=== PATIENT | male | born 1965 | race Caucasian/White ===

== ENCOUNTER 2020-01-05 20:21 | Inpatient (IN) | payer MEDICAID ==
[~2020-01-05] VITALS: Ht 167.6 cm; Wt 71.7 kg
[2020-01-05] MEDS ORDERED: IPRATROPIUM/ALBUTEROL 0.5-3(2.5)MG/3ML NEB NEB PRN (21:45)
[2020-01-05] MEDS ORDERED: CLONIDINE 0.1MG TABLET PO PRN (21:45)
[2020-01-05] MEDS ORDERED: GUAIFENESIN 200MG/10ML SUGAR FREE UDC PO PRN (21:45)
[2020-01-05] MEDS ORDERED: LORAZEPAM 0.5MG TABLET PO PRN (21:45)
[2020-01-05] MEDS ORDERED: DOCUSATE SODIUM 100MG CAPSULE PO PRN (21:45)
[2020-01-05] MEDS ORDERED: ONDANSETRON HCL 4MG/2ML INJ IV PRN (21:45)
[2020-01-05] MEDS ORDERED: ZOLPIDEM TARTRATE 5MG TABLET PO PRN (21:45)
[2020-01-05] MEDS ORDERED: KETOROLAC 30MG/ML VIAL IV PRN (21:45)
[2020-01-05] MEDS ORDERED: MAGNESIUM/ALUMINUM HYDROXIDE/SIMETHICONE 30ML UDC PO PRN (21:45)
[2020-01-05] MEDS ORDERED: ACETAMINOPHEN 325MG TABLET PO PRN ×2 (21:45)
[2020-01-05 21:54] VITALS: BP 150/70
[2020-01-06] VITALS (12 sets, daily range): BP systolic 96–128; BP diastolic 49–78
[2020-01-06] MEDS ORDERED: MAGNESIUM HYDROXIDE 400MG/5ML 30ML UDC PO PRN (03:15)
[2020-01-06] MEDS ORDERED: MAGNESIUM/ALUMINUM HYDROXIDE/SIMETHICONE 30ML UDC PO PRN (03:15)
[2020-01-06] MEDS ORDERED: ONDANSETRON HCL 4MG/2ML INJ IV PRN (03:15)
[2020-01-06] MEDS ORDERED: ZOLPIDEM TARTRATE 5MG TABLET PO PRN (03:15)
[2020-01-06] MEDS ORDERED: HYDROCODONE/ACETAMINOPHEN 5/325MG TABLET PO PRN (03:15)
[2020-01-06 06:51] LABS: INR 1.1
[2020-01-06] MEDS: SODIUM CHLORIDE 0.9% 1,000 ML IV SCH ×2 (06:59→15:18)
[2020-01-06 07:00] LABS: BASOPHILS % 0.7 % (0.0-2.0); EOSINOPHILS % 1.4 % (0.0-5.0); HEMATOCRIT. 24.8 % (42.0-52.0); HEMOGLOBIN. 8.4 g/dL (14.0-18.0); LYMPHOCYTES % 11.8 % (20.0-50.0); MEAN CORPUSCULAR VOLUME 82.8 fL (80.0-94.0); MEAN PLATELET VOLUME 7.9 fl (7.4-10.4); MONOCYTES % 5.1 % (2.0-8.0); PLATELET 484 x1000/uL (130-400); RED CELL DISTRIBUTION WIDTH 16.5 % (11.6-14.6)
[2020-01-06] MEDS ORDERED: VANCOMYCIN 1 G PREMIX 200 ML IV SCH (07:00)
[2020-01-06 07:04] LABS: CHLORIDE 105 mEq/L (98-107)
[2020-01-06 07:26] LABS: HDL CHOLESTEROL 32 mg/dL (40-59); LDL CHOLESTEROL 94 mg/dL (5-100)
[2020-01-06 07:27] LABS: PHOSPHORUS 3.5 mg/dL (2.5-4.9)
[2020-01-06] MEDS: ASPIRIN 81MG TABLET PO SCH (08:33)
[2020-01-06] MEDS: CEFTRIAXONE 2 G in DEXTROSE 5% WATER 50 ML IV SCH (08:33)
[2020-01-06] MEDS: ENOXAPARIN 40MG/0.4ML SYR SUBCUT SCH (08:33)
[2020-01-06] MEDS: FAMOTIDINE 20MG TABLET PO SCH ×2 (08:33→20:04)
[2020-01-06] MEDS ORDERED: KETOROLAC 15MG/ML VIAL IV PRN (09:11)
[2020-01-06 10:28] LABS: T4 FREE 1.2 ng/dL (0.76-1.46)
[2020-01-06 10:54] LABS: VITAMIN B12 SERUM > 2000.0 pg/mL (211-911)
[2020-01-06] MEDS ORDERED: MAGNESIUM 2 G PREMIX 50 ML IV ONE (15:00)
[2020-01-06] MEDS: FERROUS SULFATE 325MG TABLET PO SCH (17:10)
[2020-01-06] MEDS: VANCOMYCIN 1 G PREMIX 200 ML IV SCH (20:03)
[2020-01-06] MEDS: PREGABALIN 25MG CAPSULE PO SCH (20:04)
[2020-01-06 21:58] LABS: *AMPHETAMINES SCREEN URINE NEGATIVE (NEGATIVE); *BARBITURATES SCREEN URINE NEGATIVE (NEGATIVE); *BENZODIAZEPINES SCREEN URINE NEGATIVE (NEGATIVE); *COCAINE SCREEN URINE NEGATIVE (NEGATIVE)
[2020-01-06 21:59] LABS: CANNABINOID URINE SCREEN NEGATIVE (NEGATIVE); METHADONE URINE SCREEN NEGATIVE (NEGATIVE); OPIATES URINE SCREEN NEGATIVE (NEGATIVE)
[2020-01-06 22:00] LABS: PHENCYCLIDINE URINE SCREEN NEGATIVE (NEGATIVE)
[2020-01-07] VITALS (16 sets, daily range): BP systolic 92–144; BP diastolic 46–74
[2020-01-07] MEDS: SODIUM CHLORIDE 0.9% 1,000 ML IV SCH ×3 (01:16→20:16)
[2020-01-07] MEDS: VANCOMYCIN 1 G PREMIX 200 ML IV SCH ×2 (03:19→12:24)
[2020-01-07 06:36] LABS: BASOPHILS % 0.7 % (0.0-2.0); HEMATOCRIT. 24.3 % (42.0-52.0); HEMOGLOBIN. 8.2 g/dL (14.0-18.0); LYMPHOCYTES % 12.6 % (20.0-50.0); MEAN CORPUSCULAR HEMOGLOBIN 28.1 pg (28.0-32.0); MEAN CORPUSCULAR VOLUME 83.5 fL (80.0-94.0); MEAN PLATELET VOLUME 7.9 fl (7.4-10.4); MONOCYTES % 5.4 % (2.0-8.0); NEUTROPHILS % 79.3 % (40.0-76.0); PLATELET 500 x1000/uL (130-400); RED BLOOD CELL COUNT 2.91 mill/uL (4.7-6.1); RED CELL DISTRIBUTION WIDTH 16.5 % (11.6-14.6)
[2020-01-07 06:49] LABS: CHLORIDE 105 mEq/L (98-107)
[2020-01-07 07:08] LABS: HDL CHOLESTEROL 30 mg/dL (40-59); LDL CHOLESTEROL 89 mg/dL (5-100)
[2020-01-07] MEDS: CEFTRIAXONE 2 G in DEXTROSE 5% WATER 50 ML IV SCH (08:30)
[2020-01-07] MEDS: ASPIRIN 81MG TABLET PO SCH (08:31)
[2020-01-07] MEDS: FAMOTIDINE 20MG TABLET PO SCH ×2 (08:31→20:16)
[2020-01-07] MEDS: PREGABALIN 25MG CAPSULE PO SCH ×2 (08:31→20:16)
[2020-01-07] MEDS: MULTIVITAMINS,THER W-MINERALS TABLET PO SCH (08:31)
[2020-01-07] MEDS: FERROUS SULFATE 325MG TABLET PO SCH ×3 (08:31→17:24)
[2020-01-07] MEDS: ENOXAPARIN 40MG/0.4ML SYR SUBCUT SCH (08:34)
[2020-01-08] VITALS (11 sets, daily range): BP systolic 97–111; BP diastolic 54–82
[2020-01-08] MEDS: VANCOMYCIN 750 MG PREMIX 150 ML IV SCH ×4 (01:06→23:13)
[2020-01-08] MEDS: SODIUM CHLORIDE 0.9% 1,000 ML IV SCH ×2 (07:16→16:27)
[2020-01-08] MEDS: FERROUS SULFATE 325MG TABLET PO SCH ×3 (07:20→16:49)
[2020-01-08 07:36] LABS: CHLORIDE 106 mEq/L (98-107)
[2020-01-08] MEDS: CEFTRIAXONE 2 G in DEXTROSE 5% WATER 50 ML IV SCH (08:00)
[2020-01-08] MEDS: ENOXAPARIN 40MG/0.4ML SYR SUBCUT SCH (08:00)
[2020-01-08] MEDS: MULTIVITAMINS,THER W-MINERALS TABLET PO SCH (09:00)
[2020-01-08] MEDS: PREGABALIN 25MG CAPSULE PO SCH ×2 (09:00→21:08)
[2020-01-08] MEDS: ASPIRIN 81MG TABLET PO SCH (09:00)
[2020-01-08] MEDS: FAMOTIDINE 20MG TABLET PO SCH ×2 (09:00→21:08)
[2020-01-08] MEDS ORDERED: MIDAZOLAM HCL 2 MG/2 ML VIAL ONE ×2 (09:24→09:32)
[2020-01-08] MEDS ORDERED: LIDOCAINE HCL 2% JELLY 5ML ONE (09:24)
[2020-01-08] MEDS ORDERED: FENTANYL CITRATE/PF 50MCG/ML 2ML VIAL ONE (09:25)
[2020-01-08] MEDS ORDERED: TETRACAINE/BENZOCAINE/BUTAMBEN 20 GM SPRAY MM ONE (09:25)
[2020-01-09] VITALS (12 sets, daily range): BP systolic 90–112; BP diastolic 47–72
[2020-01-09] MEDS: SODIUM CHLORIDE 0.9% 1,000 ML IV SCH ×3 (03:54→22:45)
[2020-01-09] MEDS: FERROUS SULFATE 325MG TABLET PO SCH ×3 (08:17→18:34)
[2020-01-09] MEDS: FAMOTIDINE 20MG TABLET PO SCH ×2 (08:17→20:15)
[2020-01-09] MEDS: PREGABALIN 25MG CAPSULE PO SCH ×2 (08:17→20:15)
[2020-01-09] MEDS: ASPIRIN 81MG TABLET PO SCH (08:17)
[2020-01-09] MEDS: MULTIVITAMINS,THER W-MINERALS TABLET PO SCH (08:17)
[2020-01-09] MEDS: CEFTRIAXONE 2 G in DEXTROSE 5% WATER 50 ML IV SCH (08:20)
[2020-01-09] MEDS: VANCOMYCIN 750 MG PREMIX 150 ML IV SCH (08:25)
[2020-01-09] MEDS: ENOXAPARIN 40MG/0.4ML SYR SUBCUT SCH (08:26)
[2020-01-09] MEDS: VANCOMYCIN 1 G PREMIX 200 ML IV SCH (20:15)
[2020-01-09] MEDS ORDERED: VANCOMYCIN 750 MG PREMIX 150 ML IV SCH (21:00)
[2020-01-10] VITALS (13 sets, daily range): BP systolic 90–122; BP diastolic 46–71
[2020-01-10] MEDS ORDERED: SODIUM CHLORIDE 0.45% 1,000 ML IV SCH (06:00)
[2020-01-10] MEDS: FERROUS SULFATE 325MG TABLET PO SCH ×3 (08:11→16:56)
[2020-01-10] MEDS: ASPIRIN 81MG TABLET PO SCH (08:12)
[2020-01-10] MEDS: FAMOTIDINE 20MG TABLET PO SCH ×2 (08:12→20:40)
[2020-01-10] MEDS: SODIUM CHLORIDE 0.9% 1,000 ML IV SCH ×2 (08:12→19:32)
[2020-01-10] MEDS: ENOXAPARIN 40MG/0.4ML SYR SUBCUT SCH (08:12)
[2020-01-10] MEDS: VANCOMYCIN 1 G PREMIX 200 ML IV SCH ×2 (08:12→20:40)
[2020-01-10] MEDS: PREGABALIN 25MG CAPSULE PO SCH ×2 (08:12→20:40)
[2020-01-10] MEDS: CEFTRIAXONE 2 G in DEXTROSE 5% WATER 50 ML IV SCH (08:12)
[2020-01-10] MEDS: MULTIVITAMINS,THER W-MINERALS TABLET PO SCH (08:12)
[2020-01-11] VITALS (12 sets, daily range): BP systolic 95–129; BP diastolic 56–86
[2020-01-11] MEDS: SODIUM CHLORIDE 0.9% 1,000 ML IV SCH ×2 (04:20→15:49)
[2020-01-11 06:47] LABS: CHLORIDE 107 mEq/L (98-107)
[2020-01-11 06:56] LABS: BASOPHILS % 0.6 % (0.0-2.0); EOSINOPHILS % 1.3 % (0.0-5.0); HEMATOCRIT. 24.1 % (42.0-52.0); LYMPHOCYTES % 13.3 % (20.0-50.0); MEAN CORPUSCULAR HEMOGLOBIN 27.7 pg (28.0-32.0); MEAN CORPUSCULAR VOLUME 83.6 fL (80.0-94.0); MEAN PLATELET VOLUME 7.8 fl (7.4-10.4); MONOCYTES % 6.9 % (2.0-8.0); NEUTROPHILS % 77.9 % (40.0-76.0); PLATELET 462 x1000/uL (130-400); RED BLOOD CELL COUNT 2.88 mill/uL (4.7-6.1); RED CELL DISTRIBUTION WIDTH 17.1 % (11.6-14.6)
[2020-01-11] MEDS: ENOXAPARIN 40MG/0.4ML SYR SUBCUT SCH (08:00)
[2020-01-11] MEDS: PREGABALIN 25MG CAPSULE PO SCH ×2 (08:20→21:25)
[2020-01-11] MEDS: FERROUS SULFATE 325MG TABLET PO SCH ×2 (08:20→12:21)
[2020-01-11] MEDS: MULTIVITAMINS,THER W-MINERALS TABLET PO SCH (08:21)
[2020-01-11] MEDS: ASPIRIN 81MG TABLET PO SCH (08:21)
[2020-01-11] MEDS: FAMOTIDINE 20MG TABLET PO SCH ×2 (08:21→21:25)
[2020-01-11] MEDS: CEFTRIAXONE 2 G in DEXTROSE 5% WATER 50 ML IV SCH (08:23)
[2020-01-11] MEDS ORDERED: HEPARIN SODIUM 1,000 UNIT/1ML VIAL IV ONE (09:07)
[2020-01-11] MEDS ORDERED: NICARDIPINE 100MCG/ML 10ML VIAL (CATH LAB) IV ONE (09:07)
[2020-01-11] MEDS ORDERED: NITROGLYCERIN 50MCG/ML 10ML VIAL (CATH LAB) IV ONE (09:07)
[2020-01-11] MEDS ORDERED: PHENYLEPHRINE 100MCG/ML 10ML VIAL (CATH LAB) IV ONE (09:07)
[2020-01-11] MEDS: VANCOMYCIN 1 G PREMIX 200 ML IV SCH ×2 (10:24→21:28)
[2020-01-11] MEDS ORDERED: FENTANYL CITRATE/PF 50MCG/ML 2ML VIAL ONE (16:06)
[2020-01-11] MEDS ORDERED: LIDOCAINE HCL 1% 20ML VIAL (Pyxis) INJ ONE (16:06)
[2020-01-11] MEDS ORDERED: MIDAZOLAM HCL 2 MG/2 ML VIAL ONE (16:07)
[2020-01-11] MEDS ORDERED: ASPIRIN/SOD BICARB/CITRIC ACID 324MG TAB EFF ONE (16:07)
[2020-01-11] MEDS ORDERED: IODIXANOL 320MG/ML 100 ML BOTTLE IV ONE (16:08)
[2020-01-11] MEDS ORDERED: ACETAMINOPHEN 325MG TABLET PO PRN ×2 (17:15→18:45)
[2020-01-11] MEDS ORDERED: MORPHINE SULFATE 2 MG/ML CPJ (NOT FOR IM USE) IV PRN (17:15)
[2020-01-11] MEDS ORDERED: ATROPINE SULFATE 1MG/10ML SYR IV PRN (17:15)
[2020-01-11] MEDS ORDERED: SODIUM CHLORIDE 0.45% 1,000 ML IV ONE (17:15)
[2020-01-11] MEDS ORDERED: ALPRAZOLAM 0.25 MG TABLET PO PRN (18:45)
[2020-01-11] MEDS ORDERED: CHLORHEXIDINE GLUCONATE 4% EXTERNAL USE TOP SCH (21:00)
[2020-01-11] MEDS ORDERED: DOCUSATE SODIUM 100MG CAPSULE PO SCH (21:00)
[2020-01-11] MEDS ORDERED: BISACODYL 10MG SUPP PR PRN (21:00)
[2020-01-11] MEDS ORDERED: ASCORBIC ACID 500 MG TABLET PO SCH (21:00)
[2020-01-11] MEDS: ALLOPURINOL 300 MG TABLET PO SCH (21:24)
[2020-01-12] VITALS (27 sets, daily range): BP systolic 93–128; BP diastolic 44–87
[2020-01-12] MEDS: SODIUM CHLORIDE 0.9% 1,000 ML IV SCH (02:16)
[2020-01-12] MEDS: ALLOPURINOL 300 MG TABLET PO SCH (05:09)
[2020-01-12 06:23] LABS: INR 1.1; PROTHROMBIN TIME 12.4 sec (9.6-11.0)
[2020-01-12] MEDS: CHLORHEXIDINE GLUCONATE 4% EXTERNAL USE TOP SCH ×2 (06:24→09:24)
[2020-01-12 06:31] LABS: CHLORIDE 102 mEq/L (98-107)
[2020-01-12 06:50] LABS: BASOPHILS % 0.4 % (0.0-2.0); EOSINOPHILS % 0.8 % (0.0-5.0); HEMATOCRIT. 23.3 % (42.0-52.0); HEMOGLOBIN. 7.9 g/dL (14.0-18.0); LYMPHOCYTES % 10.7 % (20.0-50.0); MEAN CORPUSCULAR VOLUME 82.7 fL (80.0-94.0); MEAN PLATELET VOLUME 7.9 fl (7.4-10.4); MONOCYTES % 6.5 % (2.0-8.0); NEUTROPHILS % 81.6 % (40.0-76.0); PLATELET 481 x1000/uL (130-400); RED BLOOD CELL COUNT 2.82 mill/uL (4.7-6.1); RED CELL DISTRIBUTION WIDTH 17.3 % (11.6-14.6)
[2020-01-12] MEDS: FERROUS SULFATE 325MG TABLET PO SCH ×2 (07:20→12:20)
[2020-01-12] MEDS: ENOXAPARIN 40MG/0.4ML SYR SUBCUT SCH (08:00)
[2020-01-12] MEDS: ASPIRIN 81MG TABLET PO SCH (08:21)
[2020-01-12] MEDS: FAMOTIDINE 20MG TABLET PO SCH (08:22)
[2020-01-12] MEDS: CEFTRIAXONE 2 G in DEXTROSE 5% WATER 50 ML IV SCH (08:22)
[2020-01-12] MEDS: PREGABALIN 25MG CAPSULE PO SCH (08:22)
[2020-01-12] MEDS: MULTIVITAMINS,THER W-MINERALS TABLET PO SCH (08:22)
[2020-01-12] MEDS: VANCOMYCIN 1 G PREMIX 200 ML IV SCH ×2 (09:27→22:30)
[2020-01-12] MEDS ORDERED: DOBUTAMINE 250MG PREMIX 250 ML IV PRN (10:00)
[2020-01-12] MEDS ORDERED: INSULIN REGULAR (DRIP) 100 UNITS in SODIUM CHLORIDE 0.9% 99 ML IV PRN (10:00)
[2020-01-12] MEDS ORDERED: PHENYLEPHRINE 10 MG in DEXT 5% WATER 249 ML IV PRN (10:00)
[2020-01-12] MEDS ORDERED: AMINOCAPROIC ACID 10,000 MG in SODIUM CHLORIDE 0.9% 460 ML IV PRN (10:00)
[2020-01-12] MEDS ORDERED: NICARDIPINE 40MG/200ML PREMIX 200 ML IV PRN (10:00)
[2020-01-12] MEDS ORDERED: EPINEPHRINE 4 MG in DEXT 5% WATER 246 ML IV PRN (10:00)
[2020-01-12] MEDS ORDERED: DEL NIDO ELECTROLYTE-S(PH 7.4) 1,000 ML IV PRN ×2 (10:00)
[2020-01-12] MEDS ORDERED: NOREPINEPHRINE 4 MG in DEXT 5% WATER 246 ML IV PRN (10:00)
[2020-01-12] MEDS ORDERED: CEFAZOLIN 2,000 MG in DEXT 5% WATER 100 ML IV PRN (10:00)
[2020-01-12] MEDS ORDERED: HEPARIN 1000 UNITS/ML 10ML ONE ×3 (10:42→17:20)
[2020-01-12] MEDS ORDERED: ETOMIDATE 2MG/ML 10ML VIAL IV ONE (10:42)
[2020-01-12] MEDS ORDERED: PROPOFOL 10MG/ML 100ML 100 ML IV ONE ×2 (10:42→17:44)
[2020-01-12] MEDS ORDERED: ROCURONIUM BROMIDE 10MG/ML VIAL 5ML IV ONE ×2 (10:42→17:45)
[2020-01-12] MEDS ORDERED: LABETALOL HCL 5MG/ML VIAL 20ML IV ONE (10:42)
[2020-01-12] MEDS ORDERED: BUPIVACAINE/EPINEPH/PF 0.25%/0.0005 10ML ONE (11:09)
[2020-01-12] MEDS ORDERED: SODIUM CHLORIDE 0.9% IRRIG SOL 8,000 ML IR ONE (11:10)
[2020-01-12] MEDS ORDERED: SODIUM CHLORIDE 0.9% 4,000 ML ONE (11:10)
[2020-01-12] MEDS ORDERED: THROMBIN (BOVINE) 5000 UNITS/VIAL TOP ONE ×4 (11:10→17:58)
[2020-01-12] MEDS ORDERED: NORMAL SALINE 0.9% 10 ML SYR ONE (11:10)
[2020-01-12] MEDS ORDERED: BACITRACIN 50,000 UNITS/VIAL ONE (11:10)
[2020-01-12] MEDS ORDERED: SEVOFLURANE 250 ML LIQUID INH ONE (12:23)
[2020-01-12] MEDS ORDERED: NITROGLYCERIN 50MG PREMIX 250 ML IV ONE (12:23)
[2020-01-12] MEDS ORDERED: AMINOCAPROIC ACID 250 MG/ML 20ML VIAL ONE ×2 (12:45→14:59)
[2020-01-12] MEDS ORDERED: PHENYLEPHRINE HCL 10 MG/ML 1ML (IV VIAL) IV ONE (12:45)
[2020-01-12] MEDS ORDERED: MAGNESIUM SULFATE 5GM/10ML VIAL IV ONE ×2 (12:45→16:17)
[2020-01-12] MEDS ORDERED: ALBUMIN HUMAN 25GM/100ML (25%) IV ONE (12:45)
[2020-01-12] MEDS ORDERED: MANNITOL 20% 500 ML IV ONE (12:46)
[2020-01-12] MEDS ORDERED: CALCIUM CHLORIDE 1GM/10ML SYR IV ONE (12:46)
[2020-01-12] MEDS ORDERED: HEPARIN 10,000 UNITS/ML VIAL ONE ×4 (12:46→17:00)
[2020-01-12] MEDS ORDERED: SODIUM BICARBONATE 8.4% 1 MEQ/ML 50ML SYR IV ONE ×2 (12:47→16:30)
[2020-01-12] MEDS ORDERED: ACETAMINOPHEN 500MG TABLET ONE (13:04)
[2020-01-12] MEDS ORDERED: ALBUMIN HUMAN 12.5G/250ML (5%) IV ONE (13:04)
[2020-01-12] MEDS ORDERED: MIDAZOLAM HCL 2 MG/2 ML VIAL ONE (13:09)
[2020-01-12] MEDS ORDERED: FENTANYL CITRATE/PF 50MCG/ML 2ML VIAL ONE (13:09)
[2020-01-12] MEDS ORDERED: ONDANSETRON HCL 4MG/2ML INJ ONE (14:58)
[2020-01-12] MEDS ORDERED: METOCLOPRAMIDE HCL 10MG/2ML VIAL ONE (14:58)
[2020-01-12] MEDS ORDERED: FUROSEMIDE 20MG/2ML VIAL ONE (16:18)
[2020-01-12] MEDS ORDERED: NEOSTIGMINE METHYLSULFATE 1MG/ML 10 ML VIAL ONE (16:38)
[2020-01-12] MEDS ORDERED: PROTAMINE SULFATE 10MG/ML VIAL 25ML IV ONE (17:21)
[2020-01-12] MEDS ORDERED: HYDROMORPHONE HCL/PF 2MG/ML (OR) ONE (18:32)
[2020-01-12] MEDS ORDERED: CEFTRIAXONE 1 G PREMIX 50 ML IV NR (18:35)
[2020-01-12 19:24] LABS: HEMATOCRIT. 21.2 % (42.0-52.0); HEMOGLOBIN. 7.1 g/dL (14.0-18.0); MEAN CORPUSCULAR HEMOGLOBIN 28.2 pg (28.0-32.0); MEAN CORPUSCULAR VOLUME 84.1 fL (80.0-94.0); MEAN PLATELET VOLUME 7.8 fl (7.4-10.4); PLATELET 255 x1000/uL (130-400); RED BLOOD CELL COUNT 2.52 mill/uL (4.7-6.1); RED CELL DISTRIBUTION WIDTH 16.3 % (11.6-14.6)
[2020-01-12 19:30] LABS: CHLORIDE 102 mEq/L (98-107)
[2020-01-12] MEDS ORDERED: MAGNESIUM 1 G PREMIX 100 ML IV PRN (19:30)
[2020-01-12] MEDS ORDERED: KCL 10MEQ/50ML PREMIX 200 ML IV PRN (19:30)
[2020-01-12] MEDS ORDERED: MAGNESIUM SULFATE 3 GM in DEXT 5% WATER 96 ML IV PRN (19:30)
[2020-01-12] MEDS ORDERED: MAGNESIUM 2 G PREMIX 50 ML IV PRN (19:30)
[2020-01-12 19:34] LABS: PHOSPHORUS 5.7 mg/dL (2.5-4.9)
[2020-01-12 19:37] LABS: INR 1.2; PROTHROMBIN TIME 12.7 sec (9.6-11.0)
[2020-01-12] MEDS ORDERED: NOREPINEPHRINE 4 MG in DEXT 5% WATER 246 ML IV SCH (19:40)
[2020-01-12] MEDS ORDERED: SODIUM CHLORIDE 0.9% 500 ML IV PRN (19:40)
[2020-01-12] MEDS ORDERED: OXYCODONE HCL/ACETAMINOPHEN 5/325MG TABLET PO PRN (19:45)
[2020-01-12] MEDS ORDERED: CALCIUM CHLORIDE 5,000 MG in DEXT 5% WATER 500 ML IV PRN (19:45)
[2020-01-12] MEDS ORDERED: ALBUMIN HUMAN 12.5G/250ML (5%) IV PRN (19:45)
[2020-01-12] MEDS ORDERED: ACETAMINOPHEN 325MG TABLET PO PRN (19:45)
[2020-01-12 19:56] LABS: BG BASE EXCESS 4.3 mmol/L (-2.0-2.0); BG CARBOXYHEMOGLOBIN 0.3 % (0.5-1.5); BG DEOXYHEMOGLOBIN 24.3 % (0.0-5.0); BG FRACTION INSPIRED OXYGEN 100; BG HCO3 ACT 26.6 mmol/L (22.0-26.0); BG METHEMOGLOBIN 0.6 % (0.0-1.5); BG OXYGEN SATURATION 75.5 % (92.0-98.5); BG OXYHEMOGLOBIN 74.8 % (94.0-97.0); BG PCO2 30.5 mmHg (35.0-45.0); BG PH 7.558 (7.350-7.450); BG PO2 34.4 mmHg (75.0-100.0); BG SAMPLE SITE OTHER; BG VENT MODE AMBU BAG
[2020-01-12 20:04] LABS: PLATELET ESTIMATE NORMAL
[2020-01-12 20:23] LABS: BG BASE EXCESS 2.7 mmol/L (-2.0-2.0); BG CARBOXYHEMOGLOBIN 0.3 % (0.5-1.5); BG FRACTION INSPIRED OXYGEN 60; BG HCO3 ACT 25.6 mmol/L (22.0-26.0); BG METHEMOGLOBIN 0.2 % (0.0-1.5); BG OXYHEMOGLOBIN 98.5 % (94.0-97.0); BG PCO2 32.6 mmHg (35.0-45.0); BG PH 7.513 (7.350-7.450); BG PO2 297.6 mmHg (75.0-100.0); BG SAMPLE SITE A-LINE; BG TIDAL VOLUME(mL) 450 mL; BG TOTAL HEMOGLOBIN 8.8 g/dL (12.0-18.0); BG VENT MODE VENT - A/C; BG VENT RATE 16 set
[2020-01-12] MEDS ORDERED: ALBUMIN HUMAN 12.5G/250ML (5%) IV NR (20:30)
[2020-01-12] MEDS: IPRATROPIUM/ALBUTEROL 0.5-3(2.5)MG/3ML NEB HHN SCH (20:32)
[2020-01-12] MEDS: DEXT 5%/0.45% NACL 1000ML 1,000 ML IV SCH (20:53)
[2020-01-12] MEDS ORDERED: AMIKACIN SULFATE 500 MG in SODIUM CHLORIDE 0.9% 100 ML IV SCH (21:00)
[2020-01-12] MEDS ORDERED: SODIUM CHLORIDE 0.9% 1,000 ML IV SCH (21:00)
[2020-01-12] MEDS: MAGNESIUM HYDROXIDE 400MG/5ML 30ML UDC PO SCH (21:39)
[2020-01-12] MEDS: MORPHINE SULFATE 2 MG/ML CPJ (NOT FOR IM USE) IV PRN (22:27)
[2020-01-12] MEDS: KCL 10MEQ/50ML PREMIX 150 ML IV PRN (23:04)
[2020-01-12 23:35] LABS: HEMATOCRIT. 26.8 % (42.0-52.0); HEMOGLOBIN. 9.1 g/dL (14.0-18.0); MEAN CORPUSCULAR HEMOGLOBIN 28.5 pg (28.0-32.0); MEAN CORPUSCULAR VOLUME 83.9 fL (80.0-94.0); MEAN PLATELET VOLUME 7.8 fl (7.4-10.4); PLATELET 257 x1000/uL (130-400); RED BLOOD CELL COUNT 3.19 mill/uL (4.7-6.1); RED CELL DISTRIBUTION WIDTH 16.2 % (11.6-14.6)
[2020-01-13] VITALS (57 sets, daily range): BP systolic 95–231; BP diastolic 43–231
[2020-01-13] MEDS ORDERED: DEXTROSE 50% WATER 50ML SYRINGE IV PRN ×2
[2020-01-13] MEDS: MAGNESIUM HYDROXIDE 400MG/5ML 30ML UDC PO SCH ×6 (00:31→20:24)
[2020-01-13] MEDS: IPRATROPIUM/ALBUTEROL 0.5-3(2.5)MG/3ML NEB HHN SCH ×6 (00:33→21:05)
[2020-01-13 00:38] LABS: PLATELET ESTIMATE NORMAL
[2020-01-13] MEDS: BLOOD SUGAR DIAGNOSTIC STRIP TEST SCH ×23 (01:04→23:00)
[2020-01-13] MEDS: INSULIN REGULAR (DRIP) 100 UNITS in SODIUM CHLORIDE 0.9% 100 ML IV SCH ×2 (01:18→20:47)
[2020-01-13 01:22] LABS: HEMATOCRIT. 26.8 % (42.0-52.0); HEMOGLOBIN. 9.1 g/dL (14.0-18.0); MEAN CORPUSCULAR HEMOGLOBIN 28.5 pg (28.0-32.0); MEAN CORPUSCULAR VOLUME 83.9 fL (80.0-94.0); MEAN PLATELET VOLUME 7.7 fl (7.4-10.4); PLATELET 279 x1000/uL (130-400); RED BLOOD CELL COUNT 3.19 mill/uL (4.7-6.1); RED CELL DISTRIBUTION WIDTH 16.1 % (11.6-14.6)
[2020-01-13] MEDS: MORPHINE SULFATE 2 MG/ML CPJ (NOT FOR IM USE) IV PRN ×2 (01:25→04:22)
[2020-01-13] MEDS ORDERED: ALBUMIN HUMAN 12.5G/250ML (5%) IV NR (01:30)
[2020-01-13 01:33] LABS: BG BASE EXCESS -4.4 mmol/L (-2.0-2.0); BG CARBOXYHEMOGLOBIN 0.3 % (0.5-1.5); BG DEOXYHEMOGLOBIN 1.7 % (0.0-5.0); BG FRACTION INSPIRED OXYGEN 40; BG HCO3 ACT 19.8 mmol/L (22.0-26.0); BG METHEMOGLOBIN 0.4 % (0.0-1.5); BG OXYGEN SATURATION 98.3 % (92.0-98.5); BG OXYHEMOGLOBIN 97.6 % (94.0-97.0); BG PCO2 32.7 mmHg (35.0-45.0); BG PH 7.399 (7.350-7.450); BG PO2 161.2 mmHg (75.0-100.0); BG SAMPLE SITE A-LINE; BG TIDAL VOLUME(mL) 450 mL; BG TOTAL HEMOGLOBIN 9.2 g/dL (12.0-18.0); BG VENT MODE VENT - SIMV; BG VENT RATE 6 set
[2020-01-13 01:38] LABS: CHLORIDE 109 mEq/L (98-107)
[2020-01-13 01:52] LABS: PLATELET ESTIMATE NORMAL
[2020-01-13] MEDS: MAGNESIUM 1 G PREMIX 100 ML IV PRN ×2 (02:01→06:19)
[2020-01-13 02:51] LABS: BG BASE EXCESS -1.1 mmol/L (-2.0-2.0); BG CARBOXYHEMOGLOBIN 0.3 % (0.5-1.5); BG DEOXYHEMOGLOBIN 1.5 % (0.0-5.0); BG FRACTION INSPIRED OXYGEN 40; BG HCO3 ACT 23.7 mmol/L (22.0-26.0); BG METHEMOGLOBIN 0.3 % (0.0-1.5); BG OXYGEN SATURATION 98.5 % (92.0-98.5); BG OXYHEMOGLOBIN 97.9 % (94.0-97.0); BG PCO2 39.6 mmHg (35.0-45.0); BG PH 7.394 (7.350-7.450); BG PO2 167.4 mmHg (75.0-100.0); BG PRESSURE SUPPORT 8; BG SAMPLE SITE A-LINE; BG TOTAL HEMOGLOBIN 8.4 g/dL (12.0-18.0); BG VENT MODE VENT - CPAP
[2020-01-13] MEDS ORDERED: NICARDIPINE 50 MG in SODIUM CHLORIDE 0.9% 230 ML IV PRN (03:45)
[2020-01-13 05:56] LABS: HEMATOCRIT. 25.9 % (42.0-52.0); HEMOGLOBIN. 8.8 g/dL (14.0-18.0); MEAN CORPUSCULAR HEMOGLOBIN 28.8 pg (28.0-32.0); MEAN CORPUSCULAR VOLUME 84.8 fL (80.0-94.0); MEAN PLATELET VOLUME 8.6 fl (7.4-10.4); PLATELET 249 x1000/uL (130-400); RED BLOOD CELL COUNT 3.06 mill/uL (4.7-6.1); RED CELL DISTRIBUTION WIDTH 16.3 % (11.6-14.6)
[2020-01-13 06:04] LABS: CHLORIDE 109 mEq/L (98-107)
[2020-01-13 06:10] LABS: PHOSPHORUS 5.4 mg/dL (2.5-4.9)
[2020-01-13] MEDS: KCL 10MEQ/50ML PREMIX 100 ML IV PRN (06:19)
[2020-01-13 08:17] LABS: PLATELET ESTIMATE NORMAL
[2020-01-13] MEDS: FERROUS SULFATE 325MG TABLET PO SCH ×3 (08:20→17:46)
[2020-01-13] MEDS ORDERED: FAMOTIDINE 20MG/2ML VIAL IV SCH (09:00)
[2020-01-13] MEDS: CEFTRIAXONE 2 G in DEXTROSE 5% WATER 50 ML IV SCH (09:41)
[2020-01-13] MEDS: DOCUSATE SODIUM 100MG CAPSULE PO SCH ×2 (09:41→17:46)
[2020-01-13] MEDS: VANCOMYCIN 1 G PREMIX 200 ML IV SCH ×2 (10:11→20:46)
[2020-01-13] MEDS: OXYCODONE HCL/ACETAMINOPHEN 5/325MG TABLET PO PRN ×2 (10:41→21:56)
[2020-01-13] MEDS: DEXT 5%/0.45% NACL 1000ML 1,000 ML IV SCH (13:43)
[2020-01-13] MEDS ORDERED: FUROSEMIDE 40MG/4ML VIAL IVP NR ×2 (13:45→21:45)
[2020-01-13] MEDS: ASPIRIN 81MG TABLET PO SCH (13:57)
[2020-01-13] MEDS ORDERED: ENOXAPARIN 60MG/0.6ML SYR SUBCUT SCH (15:00)
[2020-01-13 16:48] LABS: HEMATOCRIT 27.2 % (42.0-52.0); HEMOGLOBIN 9.4 g/dL (14.0-18.0); MEAN CORPUSCULAR HEMOGLOBIN 29.4 pg (28.0-32.0); MEAN CORPUSCULAR VOLUME 84.7 fL (80.0-94.0); PLATELET 224 x1000/uL (130-400); RED BLOOD CELL COUNT 3.21 mill/uL (4.7-6.1); RED CELL DISTRIBUTION WIDTH 16.6 % (11.6-14.6)
[2020-01-13 16:51] LABS: CHLORIDE 100 mEq/L (98-107)
[2020-01-13] MEDS ORDERED: WARFARIN SODIUM 4MG TABLET PO NR (18:00)
[2020-01-13] MEDS: ENOXAPARIN 60MG/0.6ML SYR SUBCUT SCH (20:45)
[2020-01-13] MEDS: MAGNESIUM 2 G PREMIX 50 ML IV PRN (20:46)
[2020-01-14] VITALS (53 sets, daily range): BP systolic 85–148; BP diastolic 42–116
[2020-01-14] MEDS: IPRATROPIUM/ALBUTEROL 0.5-3(2.5)MG/3ML NEB HHN SCH ×6 (00:34→21:13)
[2020-01-14] MEDS: BLOOD SUGAR DIAGNOSTIC STRIP TEST SCH ×25 (00:50→23:40)
[2020-01-14 05:38] LABS: HEMATOCRIT. 22.7 % (42.0-52.0); HEMOGLOBIN. 7.9 g/dL (14.0-18.0); MEAN CORPUSCULAR VOLUME 83.8 fL (80.0-94.0); MEAN PLATELET VOLUME 8.6 fl (7.4-10.4); PLATELET 208 x1000/uL (130-400); RED BLOOD CELL COUNT 2.71 mill/uL (4.7-6.1); RED CELL DISTRIBUTION WIDTH 16.5 % (11.6-14.6)
[2020-01-14 05:45] LABS: CHLORIDE 93 mEq/L (98-107)
[2020-01-14 06:00] LABS: PHOSPHORUS 5.4 mg/dL (2.5-4.9)
[2020-01-14 06:06] LABS: INR 1.1; PROTHROMBIN TIME 11.9 sec (9.6-11.0)
[2020-01-14] MEDS: DEXT 5%/0.45% NACL 1000ML 1,000 ML IV SCH ×2 (06:19→22:30)
[2020-01-14] MEDS: KCL 10MEQ/50ML PREMIX 150 ML IV PRN (06:29)
[2020-01-14] MEDS: MAGNESIUM 2 G PREMIX 50 ML IV PRN ×2 (06:29→21:18)
[2020-01-14 07:22] LABS: PLATELET ESTIMATE NORMAL
[2020-01-14] MEDS: DOCUSATE SODIUM 100MG CAPSULE PO SCH ×2 (08:48→17:28)
[2020-01-14] MEDS: FERROUS SULFATE 325MG TABLET PO SCH ×3 (08:48→18:20)
[2020-01-14] MEDS: CEFTRIAXONE 2 G in DEXTROSE 5% WATER 50 ML IV SCH (08:48)
[2020-01-14] MEDS: ASPIRIN 81MG TABLET PO SCH (08:48)
[2020-01-14] MEDS: FAMOTIDINE 20MG TABLET PO SCH ×2 (09:20→20:30)
[2020-01-14] MEDS: VANCOMYCIN 1 G PREMIX 200 ML IV SCH ×2 (10:56→20:30)
[2020-01-14] MEDS ORDERED: FUROSEMIDE 40MG/4ML VIAL IVP NR (11:00)
[2020-01-14 13:06] LABS: BRUCELLA AB IGG EIA Negative (Negative); BRUCELLA AB IGM EIA Negative (Negative)
[2020-01-14] MEDS: ENOXAPARIN 60MG/0.6ML SYR SUBCUT SCH ×2 (13:51→20:30)
[2020-01-14] MEDS: MAGNESIUM HYDROXIDE 400MG/5ML 30ML UDC PO SCH ×3 (14:23→22:10)
[2020-01-14 16:36] LABS: CHLORIDE 90 mEq/L (98-107)
[2020-01-14 16:47] LABS: HEMATOCRIT 30.5 % (42.0-52.0); HEMOGLOBIN 10.5 g/dL (14.0-18.0); MEAN CORPUSCULAR HEMOGLOBIN 29.5 pg (28.0-32.0); MEAN CORPUSCULAR VOLUME 85.9 fL (80.0-94.0); PLATELET 223 x1000/uL (130-400); RED BLOOD CELL COUNT 3.56 mill/uL (4.7-6.1); RED CELL DISTRIBUTION WIDTH 16.4 % (11.6-14.6)
[2020-01-14] MEDS ORDERED: BLOOD SUGAR DIAGNOSTIC STRIP TEST SCH (17:15)
[2020-01-14] MEDS ORDERED: DEXTROSE 50% WATER 50ML SYRINGE IV PRN ×2 (17:15)
[2020-01-14 17:37] LABS: BG BASE EXCESS 4.8 mmol/L (-2.0-2.0); BG CARBOXYHEMOGLOBIN 0.3 % (0.5-1.5); BG DEOXYHEMOGLOBIN 11.4 % (0.0-5.0); BG FRACTION INSPIRED OXYGEN 21; BG METHEMOGLOBIN 0.2 % (0.0-1.5); BG OXYGEN SATURATION 88.5 % (92.0-98.5); BG OXYHEMOGLOBIN 88.1 % (94.0-97.0); BG PCO2 31.6 mmHg (35.0-45.0); BG PH 7.549 (7.350-7.450); BG PO2 53.6 mmHg (75.0-100.0); BG SAMPLE SITE LEFT RADIAL; BG TOTAL HEMOGLOBIN 10.7 g/dL (12.0-18.0); BG VENT MODE ROOM AIR
[2020-01-14] MEDS ORDERED: FUROSEMIDE 40MG/4ML VIAL IVP SCH (17:45)
[2020-01-14] MEDS ORDERED: WARFARIN SODIUM 5MG TABLET PO SCH (18:00)
[2020-01-14] MEDS: KCL 10MEQ/50ML PREMIX 100 ML IV PRN (18:23)
[2020-01-14] MEDS: IRON SUCROSE COMPLEX 100 MG/5 ML ML IV SCH (20:17)
[2020-01-14] MEDS ORDERED: LACTULOSE 20G/30ML UDC PO PRN (21:00)
[2020-01-14] MEDS: OXYCODONE HCL/ACETAMINOPHEN 5/325MG TABLET PO PRN (22:30)
[2020-01-14] MEDS: KETOROLAC 15MG/ML VIAL IV SCH (23:59)
[2020-01-15] VITALS (40 sets, daily range): BP systolic 103–135; BP diastolic 25–96
[2020-01-15] MEDS: IPRATROPIUM/ALBUTEROL 0.5-3(2.5)MG/3ML NEB HHN SCH ×6 (00:27→20:33)
[2020-01-15] MEDS: BLOOD SUGAR DIAGNOSTIC STRIP TEST SCH ×16 (00:42→21:16)
[2020-01-15 04:23] LABS: BASOPHILS % 0.5 % (0.0-2.0); HEMATOCRIT. 29.5 % (42.0-52.0); HEMOGLOBIN. 9.9 g/dL (14.0-18.0); LYMPHOCYTES % 7.2 % (20.0-50.0); MEAN CORPUSCULAR HEMOGLOBIN 29.3 pg (28.0-32.0); MEAN CORPUSCULAR VOLUME 86.6 fL (80.0-94.0); MONOCYTES % 5.7 % (2.0-8.0); NEUTROPHILS % 86.6 % (40.0-76.0); PLATELET 210 x1000/uL (130-400); RED CELL DISTRIBUTION WIDTH 16.1 % (11.6-14.6)
[2020-01-15 04:26] LABS: INR 1.2; PROTHROMBIN TIME 12.7 sec (9.6-11.0)
[2020-01-15 04:28] LABS: CHLORIDE 91 mEq/L (98-107)
[2020-01-15 04:33] LABS: PHOSPHORUS 3.7 mg/dL (2.5-4.9)
[2020-01-15] MEDS: KCL 10MEQ/50ML PREMIX 150 ML IV PRN ×2 (04:35→10:49)
[2020-01-15] MEDS: KETOROLAC 15MG/ML VIAL IV SCH ×3 (06:01→17:15)
[2020-01-15 06:37] LABS: HEMOGLOBIN 9.7 g/dL (14.0-18.0)
[2020-01-15] MEDS: VANCOMYCIN 1 G PREMIX 200 ML IV SCH (08:08)
[2020-01-15] MEDS: CEFTRIAXONE 2 G in DEXTROSE 5% WATER 50 ML IV SCH (08:08)
[2020-01-15] MEDS: ENOXAPARIN 60MG/0.6ML SYR SUBCUT SCH ×2 (08:09→21:30)
[2020-01-15] MEDS: IRON SUCROSE COMPLEX 100 MG/5 ML ML IV SCH (08:09)
[2020-01-15] MEDS: ASPIRIN 81MG TABLET PO SCH (08:09)
[2020-01-15] MEDS: FAMOTIDINE 20MG TABLET PO SCH ×2 (08:09→21:29)
[2020-01-15] MEDS: FERROUS SULFATE 325MG TABLET PO SCH ×3 (08:09→17:25)
[2020-01-15] MEDS: DOCUSATE SODIUM 100MG CAPSULE PO SCH ×2 (08:09→16:00)
[2020-01-15] MEDS ORDERED: LIDOCAINE HCL 1% 20ML VIAL (Pyxis) INJ ONE (08:41)
[2020-01-15 10:27] LABS: CHLORIDE 95 mEq/L (98-107)
[2020-01-15] MEDS: DEXT 5%/0.45% NACL 1000ML 1,000 ML IV SCH (13:49)
[2020-01-15] MEDS ORDERED: DEXTROSE 50% WATER 50ML SYRINGE IV PRN (14:15)
[2020-01-15 16:07] LABS: HEMATOCRIT 28.6 % (42.0-52.0); HEMOGLOBIN 9.6 g/dL (14.0-18.0)
[2020-01-15 16:11] LABS: CHLORIDE 100 mEq/L (98-107)
[2020-01-15] MEDS: INSULIN LISPRO 100 UNITS/ML SUBCUT SCH ×2 (17:15→21:00)
[2020-01-15] MEDS ORDERED: WARFARIN SODIUM 7.5MG TABLET PO SCH (18:00)
[2020-01-15] MEDS: EPOETIN ALFA 4000UNITS/ML VIAL SUBCUT SCH (21:29)
[2020-01-16] VITALS (55 sets, daily range): BP systolic 98–137; BP diastolic 46–97
[2020-01-16] MEDS: IPRATROPIUM/ALBUTEROL 0.5-3(2.5)MG/3ML NEB HHN SCH ×6 (00:14→20:25)
[2020-01-16] MEDS: KETOROLAC 15MG/ML VIAL IV SCH ×5 (00:35→23:38)
[2020-01-16 06:58] LABS: INR 2.3; PROTHROMBIN TIME 24.1 sec (9.6-11.0)
[2020-01-16 07:06] LABS: CHLORIDE 102 mEq/L (98-107); HEMATOCRIT 23.9 % (42.0-52.0); HEMOGLOBIN 8.1 g/dL (14.0-18.0); MEAN CORPUSCULAR HEMOGLOBIN 29.6 pg (28.0-32.0); MEAN CORPUSCULAR VOLUME 87.8 fL (80.0-94.0); PLATELET 192 x1000/uL (130-400); RED BLOOD CELL COUNT 2.72 mill/uL (4.7-6.1); RED CELL DISTRIBUTION WIDTH 16.5 % (11.6-14.6)
[2020-01-16] MEDS: INSULIN LISPRO 100 UNITS/ML SUBCUT SCH ×4 (08:20→21:00)
[2020-01-16] MEDS: DOCUSATE SODIUM 100MG CAPSULE PO SCH ×2 (08:26→17:00)
[2020-01-16] MEDS: ASPIRIN 81MG TABLET PO SCH (08:26)
[2020-01-16] MEDS: IRON SUCROSE COMPLEX 100 MG/5 ML ML IV SCH (08:26)
[2020-01-16] MEDS: FERROUS SULFATE 325MG TABLET PO SCH ×3 (08:26→17:41)
[2020-01-16] MEDS: FAMOTIDINE 20MG TABLET PO SCH (08:26)
[2020-01-16] MEDS: BLOOD SUGAR DIAGNOSTIC STRIP TEST SCH ×4 (08:35→21:41)
[2020-01-16] MEDS: CEFTRIAXONE 2 G in DEXTROSE 5% WATER 50 ML IV SCH (08:35)
[2020-01-16] MEDS: ENOXAPARIN 60MG/0.6ML SYR SUBCUT SCH ×2 (10:22→21:52)
[2020-01-16] MEDS: MAGNESIUM 2 G PREMIX 50 ML IV PRN (12:39)
[2020-01-16] MEDS: PANTOPRAZOLE SODIUM 40 MG/VIAL IV SCH (12:40)
[2020-01-16 13:03] LABS: HEMOGLOBIN 7.7 g/dL (14.0-18.0)
[2020-01-16] MEDS: VANCOMYCIN 1250MG in DEXTROSE 5% WATER 250ML IV SCH (13:08)
[2020-01-16 19:04] LABS: HEMATOCRIT 24.3 % (42.0-52.0); HEMOGLOBIN 8.6 g/dL (14.0-18.0)
[2020-01-16] MEDS ORDERED: AMIODARONE HCL 900 MG in DEXT 5% WATER 482 ML IV PRN (22:45)
[2020-01-16] MEDS ORDERED: AMIODARONE HCL 150 MG in DEXT 5% WATER 100 ML IV ONE (22:45)
[2020-01-17] VITALS (91 sets, daily range): BP systolic 49–146; BP diastolic 33–98
[2020-01-17] MEDS: KETOROLAC 15MG/ML VIAL IV SCH ×5 (00:43→21:32)
[2020-01-17] MEDS: IPRATROPIUM/ALBUTEROL 0.5-3(2.5)MG/3ML NEB HHN SCH ×7 (00:52→23:54)
[2020-01-17 01:45] LABS: HEMATOCRIT 24.4 % (42.0-52.0); HEMOGLOBIN 8.1 g/dL (14.0-18.0)
[2020-01-17 04:58] LABS: HEMATOCRIT 22.1 % (42.0-52.0); HEMOGLOBIN 7.4 g/dL (14.0-18.0)
[2020-01-17 05:04] LABS: INR 3.1
[2020-01-17 07:15] LABS: HEMATOCRIT 21.8 % (42.0-52.0); HEMOGLOBIN 7.2 g/dL (14.0-18.0); MEAN CORPUSCULAR HEMOGLOBIN 29.9 pg (28.0-32.0); MEAN CORPUSCULAR VOLUME 90.1 fL (80.0-94.0); PLATELET 207 x1000/uL (130-400); RED BLOOD CELL COUNT 2.42 mill/uL (4.7-6.1); RED CELL DISTRIBUTION WIDTH 16.1 % (11.6-14.6)
[2020-01-17 07:42] LABS: CHLORIDE 101 mEq/L (98-107)
[2020-01-17] MEDS: BLOOD SUGAR DIAGNOSTIC STRIP TEST SCH ×4 (07:50→21:22)
[2020-01-17] MEDS: INSULIN LISPRO 100 UNITS/ML SUBCUT SCH ×4 (08:20→21:31)
[2020-01-17] MEDS: CEFTRIAXONE 2 G in DEXTROSE 5% WATER 50 ML IV SCH (08:27)
[2020-01-17] MEDS: ASPIRIN 81MG TABLET PO SCH (08:56)
[2020-01-17] MEDS: DOCUSATE SODIUM 100MG CAPSULE PO SCH ×2 (09:00→16:29)
[2020-01-17] MEDS: ENOXAPARIN 60MG/0.6ML SYR SUBCUT SCH (09:00)
[2020-01-17] MEDS: PANTOPRAZOLE SODIUM 40 MG/VIAL IV SCH (09:03)
[2020-01-17] MEDS: VANCOMYCIN 1250MG in DEXTROSE 5% WATER 250ML IV SCH (09:03)
[2020-01-17] MEDS: IRON SUCROSE COMPLEX 100 MG/5 ML ML IV SCH (09:03)
[2020-01-17] MEDS: FERROUS SULFATE 325MG TABLET PO SCH ×3 (09:03→17:58)
[2020-01-17] MEDS: ONDANSETRON HCL 4MG/2ML INJ IV PRN ×2 (09:24→15:29)
[2020-01-17] MEDS: DEXT 5%/0.9% NACL 1,000 ML IV SCH ×2 (10:26→21:31)
[2020-01-17] MEDS: MORPHINE SULFATE 2 MG/ML CPJ (NOT FOR IM USE) IV PRN (14:42)
[2020-01-17 15:28] LABS: HEMATOCRIT 23.4 % (42.0-52.0); HEMOGLOBIN 7.8 g/dL (14.0-18.0)
[2020-01-17 20:10] LABS: HEMATOCRIT 27.5 % (42.0-52.0)
[2020-01-18] VITALS (42 sets, daily range): BP systolic 92–175; BP diastolic 55–115
[2020-01-18] MEDS: IPRATROPIUM/ALBUTEROL 0.5-3(2.5)MG/3ML NEB HHN SCH ×5 (04:20→20:12)
[2020-01-18] MEDS: KETOROLAC 15MG/ML VIAL IV SCH ×3 (05:28→17:46)
[2020-01-18] MEDS ORDERED: VANCOMYCIN 1 G PREMIX 200 ML IV SCH (06:00)
[2020-01-18 06:43] LABS: HEMOGLOBIN 7.6 g/dL (14.0-18.0); MEAN CORPUSCULAR HEMOGLOBIN 29.2 pg (28.0-32.0); MEAN CORPUSCULAR VOLUME 88.2 fL (80.0-94.0); PLATELET 145 x1000/uL (130-400); RED CELL DISTRIBUTION WIDTH 17.4 % (11.6-14.6)
[2020-01-18 06:48] LABS: INR 3.5; PROTHROMBIN TIME 36.6 sec (9.6-11.0)
[2020-01-18] MEDS: BLOOD SUGAR DIAGNOSTIC STRIP TEST SCH ×4 (07:41→20:23)
[2020-01-18] MEDS: INSULIN LISPRO 100 UNITS/ML SUBCUT SCH ×4 (07:41→20:23)
[2020-01-18] MEDS: CEFTRIAXONE 2 G in DEXTROSE 5% WATER 50 ML IV SCH (07:55)
[2020-01-18] MEDS: FERROUS SULFATE 325MG TABLET PO SCH ×4 (08:20→18:08)
[2020-01-18] MEDS ORDERED: ALBUMIN HUMAN 12.5G/250ML (5%) IV SCH (08:30)
[2020-01-18] MEDS: PANTOPRAZOLE SODIUM 40 MG/VIAL IV SCH (08:46)
[2020-01-18] MEDS: IRON SUCROSE COMPLEX 100 MG/5 ML ML IV SCH (08:46)
[2020-01-18] MEDS: DOCUSATE SODIUM 100MG CAPSULE PO SCH ×2 (08:47→17:00)
[2020-01-18] MEDS: ONDANSETRON HCL 4MG/2ML INJ IV PRN (09:07)
[2020-01-18] MEDS ORDERED: PHYTONADIONE 10MG/ML AMP SUBCUT SCH (10:15)
[2020-01-18 10:20] LABS: BG BASE EXCESS -4.6 mmol/L (-2.0-2.0); BG CARBOXYHEMOGLOBIN 0.2 % (0.5-1.5); BG FRACTION INSPIRED OXYGEN 32; BG HCO3 ACT 18.9 mmol/L (22.0-26.0); BG METHEMOGLOBIN 0.2 % (0.0-1.5); BG OXYHEMOGLOBIN 95.6 % (94.0-97.0); BG PCO2 28.7 mmHg (35.0-45.0); BG PH 7.437 (7.350-7.450); BG PO2 88.5 mmHg (75.0-100.0); BG SAMPLE SITE RIGHT RADIAL; BG TOTAL HEMOGLOBIN 8.1 g/dL (12.0-18.0); BG VENT MODE NASAL CANNULA
[2020-01-18] MEDS ORDERED: DIATR MEGLU/DIATRIZOATE SOLN 30ML PO SCH (10:30)
[2020-01-18 11:02] LABS: CHLORIDE 101 mEq/L (98-107)
[2020-01-18 11:08] LABS: AMYLASE 103 IU/L (25-115)
[2020-01-18] MEDS: DEXT 5%/0.9% NACL 1,000 ML IV SCH (14:11)
[2020-01-18 15:17] LABS: HEMATOCRIT 24.3 % (42.0-52.0); HEMOGLOBIN 8.3 g/dL (14.0-18.0); MEAN CORPUSCULAR HEMOGLOBIN 29.9 pg (28.0-32.0); MEAN CORPUSCULAR VOLUME 87.4 fL (80.0-94.0); PLATELET 140 x1000/uL (130-400); RED BLOOD CELL COUNT 2.78 mill/uL (4.7-6.1); RED CELL DISTRIBUTION WIDTH 16.8 % (11.6-14.6)
[2020-01-18 15:44] LABS: INR 2.3; PROTHROMBIN TIME 24.2 sec (9.6-11.0)
[2020-01-18 19:47] LABS: CREATINE KINASE 73 IU/L (39-308)
[2020-01-18] MEDS ORDERED: DILTIAZEM HCL 5MG/ML 5ML VIAL IV NR (20:15)
[2020-01-18] MEDS: EPOETIN ALFA 4000UNITS/ML VIAL SUBCUT SCH (20:24)
[2020-01-18] MEDS ORDERED: DILTIAZEM HCL 125 MG in DEXT 5% WATER 100 ML IV PRN (21:00)
[2020-01-18] MEDS ORDERED: DILTIAZEM HCL 5MG/ML 5ML VIAL IV PRN (21:30)
[2020-01-18 22:04] LABS: HEPATITIS B SURFACE ANTIGEN NEGATIVE
[2020-01-18 22:33] LABS: HEPATITIS A AB IGM NEGATIVE (NEGATIVE)
[2020-01-19] VITALS (47 sets, daily range): BP systolic 103–156; BP diastolic 73–106
[2020-01-19] MEDS: IPRATROPIUM/ALBUTEROL 0.5-3(2.5)MG/3ML NEB HHN SCH ×6 (00:12→20:19)
[2020-01-19] MEDS: DEXT 5%/0.9% NACL 1,000 ML IV SCH ×2 (01:54→14:56)
[2020-01-19 05:27] LABS: HEMATOCRIT. 23.2 % (42.0-52.0); HEMOGLOBIN. 7.7 g/dL (14.0-18.0); MEAN CORPUSCULAR HEMOGLOBIN 29.4 pg (28.0-32.0); MEAN CORPUSCULAR VOLUME 88.5 fL (80.0-94.0); MEAN PLATELET VOLUME 9.2 fl (7.4-10.4); PLATELET 152 x1000/uL (130-400); RED BLOOD CELL COUNT 2.62 mill/uL (4.7-6.1); RED CELL DISTRIBUTION WIDTH 16.3 % (11.6-14.6)
[2020-01-19 05:34] LABS: CHLORIDE 106 mEq/L (98-107)
[2020-01-19 05:48] LABS: INR 1.8; PARTIAL THROMBOPLASTIN TIME 36.4 sec (23.4-31.0); PROTHROMBIN TIME 19.6 sec (9.6-11.0)
[2020-01-19] MEDS: KCL 10MEQ/50ML PREMIX 100 ML IV PRN (06:40)
[2020-01-19 07:24] LABS: BG BASE EXCESS -3.3 mmol/L (-2.0-2.0); BG CARBOXYHEMOGLOBIN 0.3 % (0.5-1.5); BG FRACTION INSPIRED OXYGEN 32; BG HCO3 ACT 19.6 mmol/L (22.0-26.0); BG METHEMOGLOBIN 0.2 % (0.0-1.5); BG OXYHEMOGLOBIN 96.5 % (94.0-97.0); BG PCO2 27.9 mmHg (35.0-45.0); BG PH 7.464 (7.350-7.450); BG SAMPLE SITE RIGHT RADIAL; BG VENT MODE NASAL CANNULA
[2020-01-19] MEDS ORDERED: LACTULOSE 20G/30ML UDC PO NR (08:00)
[2020-01-19] MEDS: BLOOD SUGAR DIAGNOSTIC STRIP TEST SCH ×4 (08:13→20:42)
[2020-01-19] MEDS: INSULIN LISPRO 100 UNITS/ML SUBCUT SCH ×4 (08:13→20:42)
[2020-01-19] MEDS: PANTOPRAZOLE SODIUM 40 MG/VIAL IV SCH (08:24)
[2020-01-19] MEDS: FERROUS SULFATE 325MG TABLET PO SCH ×3 (08:24→17:59)
[2020-01-19] MEDS: DOCUSATE SODIUM 100MG CAPSULE PO SCH ×2 (08:24→17:59)
[2020-01-19 08:43] LABS: NUCLEATED RED BLOOD CELLS 2 /100 WBC
[2020-01-19 08:44] LABS: PLATELET ESTIMATE NORMAL
[2020-01-19] MEDS: CEFTRIAXONE 2 G in DEXTROSE 5% WATER 50 ML IV SCH (08:47)
[2020-01-19] MEDS: MAGNESIUM SULFATE 3 GM in DEXT 5% WATER 100 ML IV PRN (13:37)
[2020-01-19] MEDS: VANCOMYCIN 1 G PREMIX 200 ML IV SCH (13:37)
[2020-01-19] MEDS ORDERED: ENOXAPARIN 40MG/0.4ML SYR SUBCUT SCH (14:45)
[2020-01-19] MEDS ORDERED: ENOXAPARIN 30MG/0.3ML SYR SUBCUT SCH (14:52)
[2020-01-19] MEDS ORDERED: ENOXAPARIN 60MG/0.6ML SYR SUBCUT SCH (15:00)
[2020-01-19] MEDS ORDERED: HYDROCODONE/ACETAMINOPHEN 5/325MG TABLET PO PRN (17:00)
[2020-01-19] MEDS ORDERED: WARFARIN SODIUM 5MG TABLET PO NR (17:00)
[2020-01-19] MEDS ORDERED: IBUPROFEN 600MG TABLET PO PRN (17:00)
[2020-01-19] MEDS ORDERED: WARFARIN SODIUM 1MG TABLET PO NR (18:30)
[2020-01-20] VITALS (26 sets, daily range): BP systolic 134–169; BP diastolic 38–108
[2020-01-20] MEDS: IPRATROPIUM/ALBUTEROL 0.5-3(2.5)MG/3ML NEB HHN SCH ×6 (00:24→16:54)
[2020-01-20] MEDS: DEXT 5%/0.9% NACL 1,000 ML IV SCH ×2 (04:06→17:28)
[2020-01-20 05:36] LABS: CHLORIDE 109 mEq/L (98-107)
[2020-01-20 05:38] LABS: INR 1.5; PARTIAL THROMBOPLASTIN TIME 33.8 sec (23.4-31.0); PROTHROMBIN TIME 16.1 sec (9.6-11.0)
[2020-01-20 05:41] LABS: HEMATOCRIT. 23.6 % (42.0-52.0); HEMOGLOBIN. 7.9 g/dL (14.0-18.0); MEAN CORPUSCULAR HEMOGLOBIN 30.1 pg (28.0-32.0); MEAN CORPUSCULAR VOLUME 89.9 fL (80.0-94.0); MEAN PLATELET VOLUME 8.9 fl (7.4-10.4); PLATELET 137 x1000/uL (130-400); RED BLOOD CELL COUNT 2.62 mill/uL (4.7-6.1); RED CELL DISTRIBUTION WIDTH 16.9 % (11.6-14.6)
[2020-01-20] MEDS: KCL 10MEQ/50ML PREMIX 150 ML IV PRN (05:48)
[2020-01-20] MEDS: BLOOD SUGAR DIAGNOSTIC STRIP TEST SCH ×4 (08:04→21:06)
[2020-01-20] MEDS: INSULIN LISPRO 100 UNITS/ML SUBCUT SCH ×4 (08:04→21:00)
[2020-01-20] MEDS: MAGNESIUM SULFATE 3 GM in DEXT 5% WATER 100 ML IV PRN (08:10)
[2020-01-20] MEDS: CEFTRIAXONE 2 G in DEXTROSE 5% WATER 50 ML IV SCH (08:11)
[2020-01-20] MEDS: FERROUS SULFATE 325MG TABLET PO SCH (08:33)
[2020-01-20] MEDS: LACTULOSE 20G/30ML UDC PO SCH (08:33)
[2020-01-20] MEDS: PANTOPRAZOLE SODIUM 40 MG/VIAL IV SCH (08:33)
[2020-01-20] MEDS: DOCUSATE SODIUM 100MG CAPSULE PO SCH ×2 (08:33→17:17)
[2020-01-20 11:08] LABS: NUCLEATED RED BLOOD CELLS 7 /100 WBC
[2020-01-20 11:09] LABS: PLATELET ESTIMATE NORMAL
[2020-01-20] MEDS: VANCOMYCIN 1 G PREMIX 200 ML IV SCH (12:45)
[2020-01-20] MEDS ORDERED: ENOXAPARIN 40MG/0.4ML SYR SUBCUT SCH (14:15)
[2020-01-20] MEDS ORDERED: WARFARIN SODIUM 3MG TABLET PO SCH (18:00)
[2020-01-20] MEDS: EPOETIN ALFA 4000UNITS/ML VIAL SUBCUT SCH (21:11)
[2020-01-20] MEDS ORDERED: AMIODARONE HCL 900 MG in DEXT 5% WATER 482 ML IV PRN (22:00)
[2020-01-20] MEDS ORDERED: AMIODARONE HCL 150 MG in DEXT 5% WATER 100 ML IV NR (22:00)
[2020-01-21] VITALS (13 sets, daily range): BP systolic 128–162; BP diastolic 84–106
[2020-01-21] MEDS ORDERED: ENOXAPARIN 60MG/0.6ML SYR SUBCUT SCH (05:00)
[2020-01-21] MEDS: DEXT 5%/0.9% NACL 1,000 ML IV SCH ×2 (05:49→20:14)
[2020-01-21] MEDS: BLOOD SUGAR DIAGNOSTIC STRIP TEST SCH ×4 (05:53→21:00)
[2020-01-21 06:19] LABS: INR 1.5; PARTIAL THROMBOPLASTIN TIME 33.9 sec (23.4-31.0); PROTHROMBIN TIME 15.6 sec (9.6-11.0)
[2020-01-21] MEDS: INSULIN LISPRO 100 UNITS/ML SUBCUT SCH ×4 (07:20→21:00)
[2020-01-21 08:01] LABS: CHLORIDE 106 mEq/L (98-107)
[2020-01-21] MEDS: DOCUSATE SODIUM 100MG CAPSULE PO SCH ×2 (08:18→17:22)
[2020-01-21] MEDS: LACTULOSE 20G/30ML UDC PO SCH (08:18)
[2020-01-21] MEDS: PANTOPRAZOLE SODIUM 40 MG/VIAL IV SCH (08:18)
[2020-01-21] MEDS: CEFTRIAXONE 2 G in DEXTROSE 5% WATER 50 ML IV SCH (10:08)
[2020-01-21 10:30] LABS: HEMATOCRIT. 28.7 % (42.0-52.0); HEMOGLOBIN. 9.6 g/dL (14.0-18.0); MEAN CORPUSCULAR HEMOGLOBIN 30.2 pg (28.0-32.0); MEAN CORPUSCULAR VOLUME 90.8 fL (80.0-94.0); MEAN PLATELET VOLUME 9.4 fl (7.4-10.4); PLATELET 150 x1000/uL (130-400); RED BLOOD CELL COUNT 3.16 mill/uL (4.7-6.1); RED CELL DISTRIBUTION WIDTH 17.6 % (11.6-14.6)
[2020-01-21 12:11] LABS: NUCLEATED RED BLOOD CELLS 2 /100 WBC; PLATELET ESTIMATE NORMAL
[2020-01-21] MEDS: IPRATROPIUM/ALBUTEROL 0.5-3(2.5)MG/3ML NEB HHN SCH ×3 (12:45→22:09)
[2020-01-21] MEDS: VANCOMYCIN 1 G PREMIX 200 ML IV SCH (13:35)
[2020-01-21] MEDS: ENOXAPARIN 60MG/0.6ML SYR SUBCUT SCH (17:22)
[2020-01-21] MEDS ORDERED: WARFARIN SODIUM 4MG TABLET PO NR (18:00)
[2020-01-22] VITALS (10 sets, daily range): BP systolic 135–166; BP diastolic 88–104
[2020-01-22] MEDS: IPRATROPIUM/ALBUTEROL 0.5-3(2.5)MG/3ML NEB HHN SCH ×5 (01:00→16:58)
[2020-01-22] MEDS: BLOOD SUGAR DIAGNOSTIC STRIP TEST SCH ×3 (06:54→16:16)
[2020-01-22] MEDS: INSULIN LISPRO 100 UNITS/ML SUBCUT SCH ×3 (07:20→17:02)
[2020-01-22] MEDS: DEXT 5%/0.9% NACL 1,000 ML IV SCH ×2 (08:15→09:30)
[2020-01-22] MEDS: CEFTRIAXONE 2 G in DEXTROSE 5% WATER 50 ML IV SCH (08:26)
[2020-01-22] MEDS: PANTOPRAZOLE SODIUM 40 MG/VIAL IV SCH (08:26)
[2020-01-22] MEDS: DOCUSATE SODIUM 100MG CAPSULE PO SCH ×2 (08:26→16:58)
[2020-01-22] MEDS: ENOXAPARIN 60MG/0.6ML SYR SUBCUT SCH (08:28)
[2020-01-22] MEDS: LACTULOSE 20G/30ML UDC PO SCH (08:35)
[2020-01-22 10:19] LABS: CHLORIDE 107 mEq/L (98-107)
[2020-01-22 10:29] LABS: CREATINE KINASE 21 IU/L (39-308)
[2020-01-22] MEDS ORDERED: POTASSIUM CHLORIDE 20MEQ TABLET SR PO SCH (10:55)
[2020-01-22 12:16] LABS: BASOPHILS % 0.3 % (0.0-2.0); EOSINOPHILS % 1.9 % (0.0-5.0); HEMATOCRIT. 31.8 % (42.0-52.0); HEMOGLOBIN. 10.6 g/dL (14.0-18.0); LYMPHOCYTES % 8.6 % (20.0-50.0); MEAN CORPUSCULAR HEMOGLOBIN 30.5 pg (28.0-32.0); MEAN CORPUSCULAR VOLUME 91.9 fL (80.0-94.0); MEAN PLATELET VOLUME 9.6 fl (7.4-10.4); MONOCYTES % 7.9 % (2.0-8.0); NEUTROPHILS % 81.3 % (40.0-76.0); PLATELET 124 x1000/uL (130-400); RED BLOOD CELL COUNT 3.47 mill/uL (4.7-6.1); RED CELL DISTRIBUTION WIDTH 17.6 % (11.6-14.6)
[2020-01-22 12:25] LABS: INR 2.1; PARTIAL THROMBOPLASTIN TIME 41.6 sec (23.4-31.0); PROTHROMBIN TIME 22.3 sec (9.6-11.0)
[2020-01-22] MEDS ORDERED: VANCOMYCIN 1,000 MG in DEXT 5% WATER 250 ML IV SCH (14:00)
[2020-01-22] MEDS ORDERED: WARFARIN SODIUM 4MG TABLET PO NR (17:00)
[2020-01-23] MEDS ORDERED: VANCOMYCIN 1,000 MG in DEXT 5% WATER 250 ML IV SCH (13:00)
== END 2020-01-22 18:57 | disposition home or self-care, planned readmission (81) | DRG 162 ==
LOC: 3WST 20:21 → CVICU 01-11 16:10 → 3WST 01-11 17:31 → CVICU 01-12 14:18 → 3WST 01-20 10:52
PROVIDERS: ADMIT Internal Medicine; ATTEND Internal Medicine
PROC: 4A023N8 Measurement of Cardiac Sampling and Pressure, Bilateral, Percutaneous Approach (ICD-10-PCS; 2020-01-07)
PROC: B2161ZZ Fluoroscopy of Right and Left Heart using Low Osmolar Contrast (ICD-10-PCS; 2020-01-07)
PROC: 02RG0JZ Replacement of Mitral Valve with Synthetic Substitute, Open Approach (ICD-10-PCS; principal; 2020-01-12)
PROC: 0W9930Z Drainage of Right Pleural Cavity with Drainage Device, Percutaneous Approach (ICD-10-PCS; 2020-01-12)
PROC: 5A1221Z Performance of Cardiac Output, Continuous (ICD-10-PCS; 2020-01-12)
PROC: B245ZZ4 Ultrasonography of Left Heart, Transesophageal (ICD-10-PCS; 2020-01-12)
DX: I33.0 Acute and subacute infective endocarditis (principal); K72.00 Acute and subacute hepatic failure without coma; E43 Unspecified severe protein-calorie malnutrition; R64 Cachexia; D68.9 Coagulation defect, unspecified; I34.0 Nonrheumatic mitral (valve) insufficiency; D63.8 Anemia in other chronic diseases classified elsewhere; I10 Essential (primary) hypertension; L08.9 Local infection of the skin and subcutaneous tissue, unspecified; D72.829 Elevated white blood cell count, unspecified; Z79.899 Other long term (current) drug therapy; Z79.82 Long term (current) use of aspirin; D50.9 Iron deficiency anemia, unspecified; E78.00 Pure hypercholesterolemia, unspecified; N32.0 Bladder-neck obstruction; I34.1 Nonrheumatic mitral (valve) prolapse; N40.0 Benign prostatic hyperplasia without lower urinary tract symptoms; J90 Pleural effusion, not elsewhere classified
CPT/HCPCS: 36415; 36600; 71045; 71250; 74018; 74176; 76705; 76937; 78278; 80048; 80053; 80061; 80076; 80202; 80305; 82140; 82150; 82248; 82270; 82375; 82378; 82550; 82607; 82746; 82805; 82962; 83036; 83540; 83550; 83615; 83735; 84100; 84145; 84439; 84443; 84484; 85014; 85018; 85025; 85027; 85347; 85384; 85520; 85651; 86140; 86622; 86705; 86709; 86803; 86850; 86900; 86920; 86927; 87070; 87075; 87340; 88305; 93005; 93306; 93312; 93454; 93880; 93970; 94640; 97110; 97116; 97163; 97165; 97530; 97535; A9560; C1725; C1729; C1751; C1758; C1769; C1887; C1893; C9113; J0171; J0282; J0696; J0885; J1170; J1644; J1650; J1815; J1885; J1940; J2250; J2270; J2370; J2405; J2704; J2710; J2720; J2765; J3010; J3370; J3430; J3475; J3480; J3490; J7030; J7042; J7050; J7060; L3908; P9012; P9016; P9017; P9034; P9041; P9047; Q9963; Q9967

== ENCOUNTER 2020-02-17 09:47 | Emergency (ER) | payer MEDICAID ==
[~2020-02-17] VITALS: Ht 167.6 cm; Wt 63.5 kg
[2020-02-17 10:00] VITALS: BP 121/83
== END 2020-02-17 11:20 | disposition home or self-care (01) ==
LOC: ER 09:47
DX: Z46.82 Encounter for fitting and adjustment of non-vascular catheter (principal); I11.9 Hypertensive heart disease without heart failure; E78.00 Pure hypercholesterolemia, unspecified; Z95.2 Presence of prosthetic heart valve; Z98.890 Other specified postprocedural states; Z88.8 Allergy status to other drugs, medicaments and biological substances
CPT/HCPCS: 99281; 99282